=== PATIENT | male | born 1990 | race African-American/Black ===

== ENCOUNTER 2024-03-28 20:35 | Emergency (ER) | payer MEDICAID, OTHER ==
[~2024-03-28] VITALS: Ht 177.8 cm; Wt 74.6 kg
--- NOTE | 2024-03-28 21:45 | DVH ---
CLINICAL INDICATION: third digit swelling TECHNIQUE: 3 radiographic views of the right 3rd digit were obtained. Comparison: None FINDINGS/IMPRESSION: There is lucency through the base of the 4th toe distal phalanx consistent with acute fracture. There is significant soft tissue edema of the 3rd finger with no obvious fractures or dislocation.
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
[2024-03-29 02:24] LABS: Basophils # (auto) 0.1 10 ^3/uL (0-0.2); Basophils % (auto) 0.8 % (0.0-2.0); Eosinophils # (auto) 0.2 10 ^3/uL (0-0.8); Eosinophils % (auto) 3.1 % (0.0-7.0); Hematocrit 38.4 % (41.0-53.0); Hemoglobin 12.8 g/dL (13.5-17.5); Lymphocytes % (auto) 14.9 % (10.0-50.0); Mean Corpuscular Hgb Conc. 33.4 g/dL (32.0-36.0); Monocytes # (auto) 0.6 10 ^3/uL (0-1.3); Monocytes % (auto) 9.4 % (0.0-12.0); Neutrophils # (auto) 4.8 10 ^3/uL (1.6-8.6); Neutrophils % (auto) 71.8 % (37.0-80.0); Nucleated Red Blood Cells % 0.2 %; Platelet Count (auto) 266 10^3/uL (140-450); Red Blood Cells 4.57 10^6/uL (4.5-5.90); Red Cell Distribution Width 13.9 % (11.8-14.3); White Blood Cell 6.7 10^3/uL (4.4-10.8)
[2024-03-29 02:43] LABS: Albumin 4.4 g/dL (3.2-4.8); Anion Gap 9 (5-15); Aspartate Aminotransferase 27 U/L (13-40); BUN/Creatinine Ratio 15.6 (10.0-20.0); Blood Urea Nitrogen 12 mg/dL (9-23); Calcium 10.1 mg/dL (8.7-10.4); Carbon Dioxide 27 mmol/L (20-31); Chloride 99 mmol/L (98-107); Glucose 95 mg/dL (74-106); Potassium 3.7 mmol/L (3.5-5.1)
[2024-03-29 02:44] LABS: Total Protein 7.9 g/dL (5.7-8.2)
[2024-03-29] MEDS: VANCOMYCIN 1GM/250ML KIT 250 ML IV ONE (03:00)
[2024-03-29 03:15] LABS: Alanine Aminotransferase 46 U/L (7-40); Alkaline Phosphatase 144 U/L (46-116); Bilirubin, Total 0.2 mg/dL (0.2-1.0); Sodium 135 mmol/L (136-145)
[2024-03-29 15:46] VITALS: BP 139/87; PULSE 98; RESP 17; TEMP 98.8; O2SAT 97
== END 2024-03-29 14:12 | disposition left against medical advice (07) ==
LOC: ER 20:35
DX: S62.632A Displaced fracture of distal phalanx of right middle finger, initial encounter for closed fracture (principal); S60.422A Blister (nonthermal) of right middle finger, initial encounter; F17.210 Nicotine dependence, cigarettes, uncomplicated; W26.8XXA Contact with other sharp object(s), not elsewhere classified, initial encounter; Y93.89 Activity, other specified; Y92.89 Other specified places as the place of occurrence of the external cause; Y99.8 Other external cause status
CPT/HCPCS: 36415; 73130; 80053; 85025

== ENCOUNTER 2024-12-10 17:31 | Inpatient (IN) | payer MEDICAID ==
[~2024-12-10] VITALS: Ht 177.8 cm; Wt 72.9 kg
--- NOTE | 2024-12-10 18:46 | ED.PDOC ---
History of Present Illness HPI Comments This patient is a homeless 33 y/o M, with a history of right-sided kidney stones who presents to the ED with c/c of right flank pain and bloody urine production for the past several days. Denial of any nausea, vomiting, or further acute symptoms. Patient states he has had these symptoms for quite some time, but has not been able to follow up with the primary care provider for management of his kidney stone concerns. Patient was febrile and tachycardic at arrival. Chief Complaint: Back Pain Time Seen by MD: 18:10 Reviewed Notes: Nurses Notes, Medications, Allergies Allergies: Coded Allergies: NO KNOWN ALLERGIES (Unverified , 03/28/24) Information Source: Patient Mode of Arrival: Ambulatory Severity: Mild Timing: Hours Duration: Since onset Prehospital treatment: None Past Medical History PAST MEDICAL HISTORY: HIV, Kidney Stones, Denies Surgical History: Denies all surgeries Family History Family History: Reviewed,noncontributory to illness Social History Smoker: Less Than 1 Pack/Day Alcohol: Denies ETOH Use Drugs: Methamphetamine Lives In: Homeless Constitutional: denies: chills, diaphoresis, fatigue, fever, malaise, sweats, weakness, others EENTM: denies: blurred vision, double vision, ear bleeding, ear discharge, ear drainage, ear pain, ear ringing, eye pain, eye redness, hearing loss, mouth pain, mouth swelling, nasal discharge, nose bleeding, nose congestion, nose pain, photophobia, tearing, throat pain, throat swelling, voice changes, others Respiratory: denies: cough, hemoptysis, orthopnea, SOB at rest, shortness of breath, SOB with excertion, stridor, wheezing, others Cardiovascular: denies: chest pain, dizzy spells, diaphoresis, Dyspnea on exertion, edema, irregular heart beat, left arm pain, lightheadedness, palpitations, PND, syncope, others Gastrointestinal: reports: abdominal pain; denies: abdomen distended, blood streaked bowels, constipated, diarrhea, dysphagia, difficulty swallowing, delores temesis, melena, nausea, poor appetite, poor fluid intake, rectal bleeding, rectal pain, vomiting, others Genitourinary: reports: flank pain, hematuria; denies: burning, dysuria, frequency, incontinence, penile discharge, penile sore, pain, testicle pain, testicle swelling, urgency, others Neurological: denies: dizziness, fainting, headache, left sided numbness, left sided weakness, numbness, paresthesia, pre-existing deficit, right sided numbness, right sided weakness, seizure, speech problems, tingling, tremors, weakness, others Musculoskeletal: denies: back pain, gout, joint pain, joint swelling, muscle pain, muscle stiffness, neck pain, others Integumetry: denies: bruises, change in color, change in hair/nails, dryness, laceration, lesions, lumps, rash, wounds, others Allergic/Immunocompromised: denies: Difficulty Healing, Frequent Infections, Hives, Itching, others Hematologic/Lymphatic: denies: anemia, blood clots, easy bleeding, easy bruising, swollen glands, others Endocrine: denies: excessive hunger, excessive sweating, excessive thirst, excessive urination, flushing, intolerance to cold, intolerance to heat, unexplained weight gain, unexplained weight loss, others Psychiatric: denies: anxiety, bipolar disorder, depression, hopeless, panic disorder, schizophrenia, sleepless, suicidal, others All Other Systems: Reviewed and Negative (Comprehensive systems review obtained and negative except for what is stated in the HPI.) Physical Exam General Appearance: Moderate Distress (Moderate distress due to right flank pain concerns. Patient is not well kempt and dirty.), Normal HEENT: Normal ENT Inspection, Pharynx Normal, TMs Normal Neck: Full Range of Motion, Non-Tender, Normal, Normal Inspection Respiratory: Chest Non-Tender, Lungs Clear, No Accessory Muscle Use, No Respiratory Distress, Normal Breath Sounds Cardiovascular: No Edema, No JVD, No Murmur, No Gallop, Normal Peripheral Pulses, Regular Rate/Rhythm Breast Exam: Deferred Gastrointestinal: Other (Diffuse right-sided tenderness to palpation with definitive CVA tenderness noted. Pain radiates towards the abdomen. No signs of trauma.) Genitalia: Deferred Pelvic: Deferred Rectal: Deferred Extremities: No calf tenderness, Normal inspection Neurologic: Alert Cerebellar Function: NOT DONE Reflexes: NOT DONE Skin: Dry, Normal Color, Warm Lymphatic: No Adenopathy Was a procedure done? Was a procedure done?: No Differential Dx Considerations may include: nephrolithiasis, pyelonephritis, cystitis, sepsis, musculoskeletal pain, kidney stone, hydronephrosis among others X-Ray, Labs, Meds, VS Vital Signs Date Time Temp Pulse Resp B/P (MAP) Pulse Ox O2 Delivery O2 Flow Rate FiO2 12/10/24 19:22 128 18 100 Room Air 0 12/10/24 19:20 98.2 128 18 128/67 (87) 100 98.2 12/10/24 17:38 101.3 119 18 130/84 97 101.3 Lab Test 12/10/24 18:54 12/10/24 18:37 Range/Units White Blood Count 8.0 4.4-10.8 10^3/uL Red Blood Count 3.15 L 4.5-5.90 10^6/uL Hemoglobin 8.3 L 13.5-17.5 g/dL Hematocrit 25.1 L 41.0-53.0 % Mean Corpuscular Volume 79.5 L 80.0-100.0 fL Mean Corpuscular Hemoglobin 26.3 L 28.0-32.0 pg Mean Corpuscular Hemoglobin Concent 33.1 32.0-36.0 g/dL Red Cell Distribution Width 16.5 H 11.8-14.3 % Platelet Count 254 140-450 10^3/uL Mean Platelet Volume 7.6 6.9-10.8 fL Neutrophils (%) (Auto) 78.5 37.0-80.0 % Lymphocytes (%) (Auto) 7.5 L 10.0-50.0 % Monocytes (%) (Auto) 12.6 H 0.0-12.0 % Eosinophils (%) (Auto) 0.4 0.0-7.0 % Basophils (%) (Auto) 1.0 0.0-2.0 % Neutrophils # (Auto) 6.3 1.6-8.6 10 ^3/uL Lymphocytes # (Auto) 0.6 0.4-5.4 10 ^3/uL Monocytes # (Auto) 1.0 0-1.3 10 ^3/uL Eosinophils # (Auto) 0 0-0.8 10 ^3/uL Basophils # (Auto) 0.1 0-0.2 10 ^3/uL Nucleated Red Blood Cells 0.1 % Sodium Level 140 136-145 mmol/L Potassium Level 3.5 3.5-5.1 mmol/L Chloride Level 103 98-107 mmol/L Carbon Dioxide Level 29 20-31 mmol/L Anion Gap 8 5-15 Blood Urea Nitrogen 12 9-23 mg/dL Creatinine 1.00 0.700-1.30 mg/dL Glomerular Filtration Rate Calc 101 >90 mL/min BUN/Creatinine Ratio 12.0 10.0-20.0 Serum Glucose 79 74-106 mg/dL Calcium Level 8.1 L 8.7-10.4 mg/dL Urine Color Light-brown Yellow Urine Clarity Turbid H Clear Urine pH 6.0 5.0-9.0 Urine Specific Trevor 1.013 1.001-1.035 Urine Protein 1+ H Negative Urine Ketones Negative Negative Urine Blood 3+ H Negative /uL Urine Nitrite Negative Negative Urine Bilirubin Negative Negative Urine Urobilinogen Normal Negative mg/dL Urine Leukocyte Esterase 3+ Negative /uL Urine RBC 197 0 - 3 /hpf Urine WBC Clumps Present None Seen /hpf Urine Microscopic WBC 297 H 0-3 /HPF Urine Squamous Epithelial Cells Few <5 /hpf Urine Bacteria Few H None Seen /hpf Urine Mucus Few None Seen Urine Glucose Normal Normal mg/dL Current Medications Medications (Trade) Dose Ordered Sig/Eva Route Start Time Stop Time Status Last Admin Ketorolac Tromethamine (Toradol Injection) 30 mg ONCE ONCE IM 12/10/24 18:15 12/10/24 18:16 DC 12/10/24 19:13 Acetaminophen/ Hydrocodone Bitart ([place] 5/325MG Tab) 1 tab ONCE ONCE PO 12/10/24 18:15 12/10/24 18:16 DC 12/10/24 19:13 X-Ray, Labs, Meds, VS Comment All studies performed the ED were evaluated by me personally. Serum studies revealed a mild anemic state as well as a significant urinary tract infection with red blood cell deposition. CT of the abdomen and pelvis confirmed a right- sided 13 mm kidney stone with the accompanying hydronephrosis. Possible mesenteric adenitis noted as well. Patient will be admitted for pain management as well as nephrology consult to assess his occlusive stone concerns as well as antibiotic therapy for a significant pyelonephritis. Time of 1ST Reevaluation: 21:48 Reevaluation 1ST: Improved Consultation: PCP Patient Education/Counseling: Diagnosis, Treatment, Need For Follow Up Family Education/Counseling: Diagnosis, Treatment, No Family Present SEPSIS Sepsis Screen Date sepsis recognized/suspect: Dec 10, 2024 Time Sepsis recognized/suspect: 1740 Recent Procedure: No On Antibiotic Therapy: No Respiratory Rate >20: No Heart Rate >90: Yes Temp<36 C (96.8 F) or >38.3 C: No SBP <90 or MAP <65 mmHG: No New Acute Mental Status Change: No Is the patient on CPAP, BIPAP,: No Physician Orders Ct Ab Pel Wo Con-No Oral Or Iv (12/10/24 18:10) Sodium Chloride 0.9% (12/10/24 21:45) Hydromorphone Injection (Dilaudid Inject (12/10/24 21:45) Heplock Iv (12/10/24 ) Ciprofloxacin 400mg/200ml (Cipro Iv) (12/10/24 21:45) Vital Signs Date Time Temp Pulse Resp B/P (MAP) Pulse Ox O2 Delivery O2 Flow Rate FiO2 12/10/24 19:22 128 18 100 Room Air 0 12/10/24 19:20 98.2 128 18 128/67 (87) 100 98.2 12/10/24 17:38 101.3 119 18 130/84 97 101.3 Laboratory Tests Test 12/10/24 18:54 White Blood Count 8.0 10^3/uL (4.4-10.8) Medications Medications Dose Ordered Sig/Eva Route Start Time Stop Time Status Last Admin Dose Admin Acetaminophen/ Hydrocodone Bitart 1 tab ONCE ONCE PO 12/10/24 18:15 12/10/24 18:16 DC 12/10/24 19:13 Ketorolac Tromethamine 30 mg ONCE ONCE IM 12/10/24 18:15 12/10/24 18:16 DC 12/10/24 19:13 Departure 1 Departure Time of Disposition: 21:48 Impression: Primary Impression: Kidney stone Additional Impressions: Hydronephrosis concurrent with and due to calculi of kidney and ureter Pyelonephritis Anemia Disposition: ADMITTED INPATIENT Condition: Fair Discharged With: Self Critical Care Note Critical Care Time?: No Stability Stability form required: No Heart Score Heart Score: Heart Score Response (Comments) Value History N/A 0 EKG N/A 0 Age N/A 0 Risk Factors N/A 0 Troponin N/A 0 Total 0 I personally scribed for TONJA CHRISTINA PAC ([email or web address]) on 12/10/24 at 18:46. Electronically submitted by Otto Benítez ([email or web address]). TONJA CHRISTINA PAC Dec 10, 2024 18:46
[2024-12-10 18:47] LABS: Hemoglobin 8.3 g/dL (13.5-17.5); Nucleated Red Blood Cells % 0.1 %
[2024-12-10 18:48] LABS: Chloride 103 mmol/L (98-107); Potassium 3.5 mmol/L (3.5-5.1); Sodium 140 mmol/L (136-145)
[2024-12-10 18:49] LABS: Anion Gap 8 (5-15); Carbon Dioxide 29 mmol/L (20-31); Hematocrit 25.1 % (41.0-53.0); Mean Corpuscular Hemoglobin 26.3 pg (28.0-32.0); Mean Corpuscular Volume 79.5 fL (80.0-100.0)
[2024-12-10 18:54] LABS: BUN/Creatinine Ratio 12.0 (10.0-20.0); Blood Urea Nitrogen 12 mg/dL (9-23); Calcium 8.1 mg/dL (8.7-10.4); Glucose 79 mg/dL (74-106)
--- NOTE | 2024-12-10 19:08 | DVH ---
Exam: CT CT AB PEL WO CON-NO ORAL OR IV History: Right-sided flank pain Comparison Study: CT CHEST on DOS: 11/21/23, CT ABD/PEL on DOS: 11/15/23, CT ABD/PEL on DOS: 08/03/23, C T ABD/PEL on DOS: 07/12/23, CT ABD/PEL W - IV on DOS: 06/13/23 TECHNIQUE: Multidetector CT of the abdomen and pelvis was performed from lung bases to pubic symphysi s. Imaging was performed without IV contrast. Axial, coronal, and sagittal multiplanar reformats were obtained from the axial data set by the technologist. RADIATION DOSE: CTDI vol 5.16 mGy. DLP 291.67 mGy.cm Findings: Limited evaluation of the solid organs in the absence of IV contrast. Lungs: Atelectasis/scarring most pronounced within the right middle lobe. Liver: Unremarkable. Spleen: Unremarkable. Pancreas: Unremarkable. Gallbladder: Unremarkable. Adrenals: Unremarkable Kidneys: 13 mm calculus in the region of the right renal pelvis. Mild right hydronephrosis. Pelvic Viscera: Unremarkable. Vasculature: Unremarkable. Retroperitoneum: Nonspecific mild retroperitoneal adenopathy. Mild hazy appearance of the mesentery. Bowel: No bowel obstruction. Musculoskeletal: Unremarkable. Soft tissues: Diffuse subcutaneous edema. Impression: 1. Limited evaluation as above. 13 mm calculus in the region of the right renal pelvis, comparison wi th prior imaging is suggested. Mild right hydronephrosis. 2. Mild hazy appearance of the mesentery and diffuse subcutaneous edema. 3. Additional findings as detailed.
[2024-12-10] MEDS: HYDROcodone-ACET 5/325MG TAB PO ONE (19:13)
[2024-12-10] MEDS: KETOROLAC TROMETH 60MG/2ML VIAL IM ONE (19:13)
[2024-12-10 19:30] LABS: Urine Protein, UAD 1+ (Negative); Urine WBC Clumps PRESENT /hpf (None Seen)
[2024-12-10] MEDS: SODIUM CHLORIDE 0.9% 1,000 ML IV ONE (21:45)
[2024-12-10] MEDS: CIPROFLOXACIN 400MG/200ML 200 ML IV ONE (23:17)
[2024-12-10] MEDS: HYDROmorphone HCL 2 MG/ML VL/or syr IV ONE (23:17)
[2024-12-10] MEDS ORDERED: ONDANSETRON HCL 4 MG/2 ML VIAL IV PRN (23:30)
--- NOTE | 2024-12-11 00:01 | DVHHPRES ---
History of Present Illness Resident Creating Document: LYN MARRERO RESIDENT History of Present Illness This is a 33-year-old male with past medical history of HIV for 3 years(taking BIKTARVY) who has come to the emergency with chief complaints of abdominal pain in the right lower quadrant for the past 1 week as well as blood in his urine since yesterday. Patient states that last Friday he started to have abdominal pain which was gradual in onset, increasing in intensity, localized to the right lower quadrant, constant and stabbing, 7/10 in intensity for which he visited [facility] where he was told that he had a kidney infection and stone and was treated for it but left AMA after 3 days of hospitalization as he was not given any food there. Patient reports that since yesterday he saw bright red blood in his urine and the abdominal pain has been increasing in intensity for which he decided to come to the ER. He states that he has increased Nausea, urinary frequency, presence of dysuria, but denies burning micturition, fever, chills, vomiting. On admission he was septic with tachycardia- pulse 119, temperature 101.3 and urine analysis showed Urine turbid, protein 1+, blood 3+, leukocyte esterase 3+, WBC clumps present, WBC 297, bacteria few. CT abdomen and pelvis shows 13 mm calculi in the right renal pelvis and mild hydronephrosis. We are admitting the patient for further workup and management. Past medical history: HIV Past Surgical history: Denies Family history: Reviewed and noncontributory to the management of this case Social history: Patient smokes 8 cigarettes/day for 18 years, smokes meth- has been doing so for 20 years, denies any alcohol use Medication: Biktarvy for HIV PCP: Does not have one Code status: Full code Review of Systems Constitutional: No: Fever, Chills, Sweats, Weakness, Malaise, Other Eyes: No: Pain, Vision change, Conjunctivae inflammation, Eyelid inflammation, Other, Redness ENT: No: Ear pain, Ear discharge, Nose pain, Nose discharge, Nose congestion, Mouth pain, Mouth swelling, Throat pain, Throat swelling, Other Respiratory: No: Cough, Dry, Shortness of breath, SOB with excertion, Wheezing, Hemoptysis, Pleuritic Pain, Sputum, Wheezing, Other Gastrointestinal: Nausea; No: Vomiting, Abdominal Pain, Diarrhea, Constipation, Melena, Hematochezia, Other Genitourinary: Dysuria, Frequency; No Incontinence; Hematuria; No Retention, No Other Musculoskeletal: No: other, neck pain, shoulder pain, arm pain, back pain, hand pain, leg pain, foot pain Skin: No: Rash, Lesions, Jaundice, Bruising, Other Allergies: Coded Allergies: NO KNOWN ALLERGIES (Unverified , 03/28/24) Medications Current Medications Medications Dose Ordered Sig/Eva Route Start Time Stop Time Status Last Admin Dose Admin Acetaminophen/ Hydrocodone Bitart 1 tab Q4HP PRN PO 12/10/24 23:30 Ondansetron HCl 4 mg Q4HP PRN IV 12/10/24 23:30 Acetaminophen 650 mg Q6HP PRN PO 12/10/24 23:30 Ceftriaxone Sodium 50 ml @ 100 mls/hr DAILY@2100 IV 12/11/24 21:00 Hydromorphone HCl 0.25 mg Q4HPRN PRN IV 12/10/24 23:30 Tamsulosin HCl 0.4 mg QPM PO 12/11/24 18:00 Pantoprazole Sodium 40 mg DAILY IV 12/11/24 10:00 Exam Vital Signs Vital Signs Date Time Temp Pulse Resp B/P (MAP) Pulse Ox O2 Delivery O2 Flow Rate FiO2 12/10/24 23:17 101 19 114/70 12/10/24 22:48 98.4 95 98.4 12/10/24 19:22 Room Air 0 Exam General Appearance: Alert, Oriented X3, Cooperative, in mild acute distress, patient looks ill HEENT: Atraumatic, Mucous membranes moist/pink, presence of oral thrush Respiratory: Clear to auscultation, Normal air movement, No added sounds Cardiovascular: Regular rate, Normal S1, Normal S2, No murmurs Abdominal: Active bowel sounds, Soft, no distention, tenderness in the right lower quadrant on palpation Extremities: No edema, Normal pulses, No tenderness/swelling Skin: No Significant rash, except past surgical scars Neuro: Normal speech, sensorimotor deficits none Psych/Mental Status: Mental status NL, Mood NL Labs/Xrays Labs Test 12/10/24 18:54 12/10/24 18:37 Range/Units White Blood Count 8.0 4.4-10.8 10^3/uL Red Blood Count 3.15 L 4.5-5.90 10^6/uL Hemoglobin 8.3 L 13.5-17.5 g/dL Hematocrit 25.1 L 41.0-53.0 % Mean Corpuscular Volume 79.5 L 80.0-100.0 fL Mean Corpuscular Hemoglobin 26.3 L 28.0-32.0 pg Mean Corpuscular Hemoglobin Concent 33.1 32.0-36.0 g/dL Red Cell Distribution Width 16.5 H 11.8-14.3 % Platelet Count 254 140-450 10^3/uL Mean Platelet Volume 7.6 6.9-10.8 fL Neutrophils (%) (Auto) 78.5 37.0-80.0 % Lymphocytes (%) (Auto) 7.5 L 10.0-50.0 % Monocytes (%) (Auto) 12.6 H 0.0-12.0 % Eosinophils (%) (Auto) 0.4 0.0-7.0 % Basophils (%) (Auto) 1.0 0.0-2.0 % Neutrophils # (Auto) 6.3 1.6-8.6 10 ^3/uL Lymphocytes # (Auto) 0.6 0.4-5.4 10 ^3/uL Monocytes # (Auto) 1.0 0-1.3 10 ^3/uL Eosinophils # (Auto) 0 0-0.8 10 ^3/uL Basophils # (Auto) 0.1 0-0.2 10 ^3/uL Nucleated Red Blood Cells 0.1 % Sodium Level 140 136-145 mmol/L Potassium Level 3.5 3.5-5.1 mmol/L Chloride Level 103 98-107 mmol/L Carbon Dioxide Level 29 20-31 mmol/L Anion Gap 8 5-15 Blood Urea Nitrogen 12 9-23 mg/dL Creatinine 1.00 0.700-1.30 mg/dL Glomerular Filtration Rate Calc 101 >90 mL/min BUN/Creatinine Ratio 12.0 10.0-20.0 Serum Glucose 79 74-106 mg/dL Calcium Level 8.1 L 8.7-10.4 mg/dL Urine Color Light-brown Yellow Urine Clarity Turbid H Clear Urine pH 6.0 5.0-9.0 Urine Specific [place] 1.013 1.001-1.035 Urine Protein 1+ H Negative Urine Ketones Negative Negative Urine Blood 3+ H Negative /uL Urine Nitrite Negative Negative Urine Bilirubin Negative Negative Urine Urobilinogen Normal Negative mg/dL Urine Leukocyte Esterase 3+ Negative /uL Urine RBC 197 0 - 3 /hpf Urine WBC Clumps Present None Seen /hpf Urine Microscopic WBC 297 H 0-3 /HPF Urine Squamous Epithelial Cells Few <5 /hpf Urine Bacteria Few H None Seen /hpf Urine Mucus Few None Seen Urine Glucose Normal Normal mg/dL SEPSIS Sepsis Screen Date sepsis recognized/suspect: Dec 10, 2024 Time Sepsis recognized/suspect: 1739 Recent Procedure: No On Antibiotic Therapy: No Respiratory Rate >20: No Heart Rate >90: Yes Temp<36 C (96.8 F) or >38.3 C: No SBP <90 or MAP <65 mmHG: No New Acute Mental Status Change: No Is the patient on CPAP, BIPAP,: No Physician Orders Ct Ab Pel Wo Con-No Oral Or Iv (12/10/24 18:10) Sodium Chloride 0.9% (12/10/24 21:45) Heplock Iv (12/10/24 ) Admit (12/10/24 23:16) Code Status (12/10/24 23:16) Hydrocodone-Acet 5/325mg Tab (Harvest 5/32 (12/10/24 23:30) Ondansetron Hcl (Zofran) (12/10/24 23:30) Complete Blood Count (12/11/24 04:00) Comprehensive Metabolic Panel (12/11/24 04:00) Acetaminophen Tablet (Tylenol Tablet) (12/10/24 23:30) Stat Ekg For Chest Pain (12/10/24 23:16) Notify Md Of Changes From Base (12/10/24 23:16) Ceftriaxone 1gm/50ml (Rocephin) (12/11/24 21:00) Hydromorphone Injection (Dilaudid Inject (12/10/24 23:30) Urine Bacterial Culture (12/10/24 23:16) Stool Occult Blood (12/10/24 23:16) * Urology Consult (12/10/24 23:16) Drug Screen (12/10/24 23:16) Hepatic Panel (12/10/24 23:16) Blood Culture (12/10/24 23:16) Hemoglobin & Hematocrit (12/10/24 23:16) Abdomen Limited (12/10/24 23:16) Magnesium (12/10/24 23:16) Mrsa Screen (12/10/24 23:16) Sodium Chloride 0.9% (12/10/24 23:30) Tamsulosin Hydrochloride (Flomax) (12/11/24 18:00) Pantoprazole (Protonix) (12/11/24 10:00) Vital Signs Date Time Temp Pulse Resp B/P (MAP) Pulse Ox O2 Delivery O2 Flow Rate FiO2 12/10/24 23:17 101 19 114/70 12/10/24 22:48 98.4 106 18 115/70 (85) 95 98.4 12/10/24 19:22 128 18 100 Room Air 0 12/10/24 19:20 98.2 128 18 128/67 (87) 100 98.2 12/10/24 17:38 101.3 119 18 130/84 97 101.3 Laboratory Tests Test 12/10/24 18:54 White Blood Count 8.0 10^3/uL (4.4-10.8) Medications Medications Dose Ordered Sig/Eva Route Start Time Stop Time Status Last Admin Dose Admin Acetaminophen/ Hydrocodone Bitart 1 tab ONCE ONCE PO 12/10/24 18:15 12/10/24 18:16 DC 12/10/24 19:13 1 TAB Ciprofloxacin 200 ml @ 200 mls/hr ONCE ONCE IV 12/10/24 21:45 12/10/24 22:44 DC 12/10/24 23:17 200 MLS/HR Ketorolac Tromethamine 30 mg ONCE ONCE IM 12/10/24 18:15 12/10/24 18:16 DC 12/10/24 19:13 30 MG Assessment/Plan Assessment/Plan #Sepsis due to acute complicated UTI #Right sided nephrolithiasis #Right sided mild hydronephrosis -urine analysis shows- Urine turbid, protein 1+, blood 3+, leukocyte esterase 3+, WBC clumps present, WBC 297, bacteria few -CT AB PEL WO CON-NO ORAL OR IV:Limited evaluation as above. 13 mm calculus in the region of the right renal pelvis, comparison with prior imaging is suggested. Mild right hydronephrosis; Mild hazy appearance of the mesentery and diffuse subcutaneous edema - blood culture - urine culture - normal saline IV bolus - ceftriaxone 1 g IV daily scheduled - pain management with: acetaminophen 650 mg q.6 p.o. prn, Harvest 5/325 mg q.4 PRN, Dilaudid 0.5 mg IV q.4 PRN - abdominal ultrasound limited - urology consult placed #Microcytic, hypochromic anemia- iron deficiency -Iron profile, ferritin - iron 12, TIBC 186, ferritin 590.3 -Stool occult blood -PT/PTT -ferrous sulphate 325mg po daily #Methamphetamine abuse -UDS -patient has been counseled regarding side effects and dangers of methamphetamine and the need for cessation over 8 minutes #HIV #oral thrush -chest x-ray ordered shows no acute disease -Fluconazole 100 mg p.o. daily scheduled GI prophylaxis: Protonix 40 mg IV daily DVT prophylaxis: held due to microcytic hypochromic anemia Diet: regular diet Goals of care discussed with the patient for more than 27 minutes: Full code status Case discussed with Dr. Turner, patient and nurse. Plan discussed with: Patient My Orders Orders - LYN MARRERO RESIDENT Procedure Category Date Status Time Admit ADMIT 12/10/24 Transmitted 23:16 Code Status CODE 12/10/24 Transmitted 23:16 Hydrocodone-Acet PHA 12/10/24 In Process 5/325mg Tab (Harvest 23:30 Ondansetron Hcl PHA 12/10/24 In Process (Zofran) 23:30 Complete Blood Count LAB 12/11/24 Verified 04:00 Comprehensive LAB 12/11/24 Verified Metabolic Panel 04:00 Acetaminophen Tablet PHA 12/10/24 In Process (Tylenol Tablet) 23:30 Stat Ekg For Chest VASQUEZ 12/10/24 In Process Pain 23:16 Notify Md Of Changes VASQUEZ 12/10/24 In Process From Base 23:16 Ceftriaxone 1gm/50ml PHA 12/11/24 In Process (Rocephin) 21:00 Hydromorphone PHA 12/10/24 In Process Injection (Dilaudid 23:30 Urine Bacterial MAIRA 12/10/24 Logged Culture 23:16 Stool Occult Blood LAB 12/10/24 Logged 23:16 * Urology Consult CONS 12/10/24 Transmitted 23:16 Drug Screen LAB 12/10/24 Logged 23:16 Hepatic Panel LAB 12/10/24 Logged 23:16 Blood Culture MAIRA 12/10/24 Logged 23:16 Hemoglobin & LAB 12/10/24 Logged Hematocrit 23:16 Abdomen Limited US 12/10/24 Logged 23:16 Magnesium LAB 12/10/24 Logged 23:16 Mrsa Screen MAIRA 12/10/24 Logged 23:16 Sodium Chloride 0.9% PHA 12/10/24 In Process 23:30 Tamsulosin PHA 12/11/24 In Process Hydrochloride (Flomax) 18:00 Pantoprazole PHA 12/11/24 In Process (Protonix) 10:00 Date of Service: Dec 11, 2024 Billing Provider: TADEO TURNER MD Common Visit Codes: [id number] INP/OBS CARE (HIGH) LYN MARRERO RESIDENT Dec 11, 2024 00:01 TADEO TURNER MD Dec 15, 2024 12:01
[2024-12-11 00:08] LABS: Hematocrit 23.7 % (41.0-53.0); Hemoglobin 7.7 g/dL (13.5-17.5)
[2024-12-11] MEDS: FLUCONAZOLE 100 MG TAB PO ONE (00:15)
[2024-12-11 00:21] LABS: Alanine Aminotransferase 22.0 U/L (7-40); Albumin 3.3 g/dL (3.2-4.8); Bilirubin, Direct 0.2 mg/dL (<0.3); Bilirubin, Total 0.4 mg/dL (0.2-1.0); Magnesium 1.6 mg/dL (1.6-2.6); Total Protein 7.0 g/dL (5.7-8.2)
[2024-12-11] MEDS: PANTOPRAZOLE 40 MG/10 ML VIAL INJ IV ONE (00:32)
[2024-12-11 00:35] LABS: Alkaline Phosphatase 121.0 U/L (46-116)
--- NOTE | 2024-12-11 00:38 | DVH ---
STUDY: US RIGHT LOWER QUAD History: rlq pain rule out appendicitis Technique: Multiplanar grayscale, and color ultrasound images, of the abdomen were obtained. Color D oppler interrogation was performed. FINDINGS/IMPRESSION: Limited sonographic evaluation of the abdomen for the assessment of possible april endicitis. The appendix was not visualized.
--- NOTE | 2024-12-11 00:59 | DVH ---
CHEST RADIOGRAPH Indication: sob Technique: Single frontal view of the chest was obtained COMPARISON: XR CHEST 1 VIEW on DOS: 10/19/24, XR CHEST 1 VIEW on DOS: 11/27/23, CT CHEST on DOS: 4, US GUIDED THORACENTESIS on DOS: 11/21/23, XR CHEST 1 VIEW on DOS: 11/20/23 FINDINGS: Lines and Tubes: None Lungs: Clear Pleura: No effusion. No pneumothorax. Cardiomediastinal contours: Unremarkable Bones: Unremarkable IMPRESSION: 1. No acute disease.
[2024-12-11 01:37] LABS: INR 1.14 (0.9-1.15); Partial Thromboplastin Time 29.9 SEC (24.5-34.5); Prothrombin Time 11.9 sec (9.3-11.8)
[2024-12-11] MEDS: SODIUM CHLORIDE 0.9% 2,200 ML IV ONE (02:11)
[2024-12-11 02:28] LABS: Iron 14.0 ug/dL (65-175); Total Iron Binding Capacity 186.0 ug/dL (250-425)
[2024-12-11 02:35] VITALS: BP 114/69; PULSE 94; RESP 20; TEMP 97.9; O2SAT 99
[2024-12-11 04:59] LABS: Alanine Aminotransferase 21 U/L (7-40); Anion Gap 9 (5-15); BUN/Creatinine Ratio 11.5 (10.0-20.0); Bilirubin, Total 0.4 mg/dL (0.2-1.0); Blood Urea Nitrogen 11 mg/dL (9-23); Carbon Dioxide 25 mmol/L (20-31); Chloride 106 mmol/L (98-107); Glucose 86 mg/dL (74-106); Potassium 3.5 mmol/L (3.5-5.1); Sodium 140 mmol/L (136-145); Total Protein 6.3 g/dL (5.7-8.2)
[2024-12-11 05:02] LABS: Hematocrit 23.4 % (41.0-53.0); Hemoglobin 7.6 g/dL (13.5-17.5); Mean Corpuscular Hemoglobin 26.5 pg (28.0-32.0); Mean Corpuscular Volume 81.7 fL (80.0-100.0); Nucleated Red Blood Cells % 0.1 %
[2024-12-11 05:05] LABS: Albumin 2.9 g/dL (3.2-4.8); Alkaline Phosphatase 154 U/L (46-116); Calcium 7.5 mg/dL (8.7-10.4)
[2024-12-11 05:30] LABS: Opiate Scree,Urine Neg (NEGATIVE)
[2024-12-11 05:31] LABS: Amphetamine Screen, Urine Pos (NEGATIVE); Barbiturate Scree,Urine Neg (NEGATIVE); Benzodiazephine Screen, Urine Neg (NEGATIVE); Cannabinoid Screen, Urine Neg (NEGATIVE); Cocaine Screen, Urine Neg (NEGATIVE); Phencyclidine Screen, Urine Neg (NEGATIVE)
[2024-12-11 09:00] VITALS: BP 129/75; PULSE 98; RESP 16; TEMP 98.6; O2SAT 94
[2024-12-11] MEDS: PANTOPRAZOLE 40 MG/10 ML VIAL INJ IV SCH (11:41)
[2024-12-11] MEDS: FERROUS SULFATE 325mg EC TAB PO SCH (11:42)
[2024-12-11] MEDS: IRON SUCROSE COMPLEX 110 ML IV SCH (11:42)
[2024-12-11] MEDS: SODIUM CHLORIDE 0.9% 1,000 ML IV SCH (12:30)
[2024-12-11 12:39] VITALS: BP 114/75; PULSE 82; RESP 16; TEMP 99.7; O2SAT 100
[2024-12-11 17:00] VITALS: BP 138/94; PULSE 84; RESP 16; TEMP 98.7; O2SAT 92
[2024-12-11] MEDS: NYSTATIN (MOUTH-THROAT) 500,000 UNITS/5 ML SUSP MT ONE (17:24)
[2024-12-11] MEDS: NYSTATIN (MOUTH-THROAT) 500,000 UNITS/5 ML SUSP MT SCH (18:28)
[2024-12-11] MEDS: TAMSULOSIN HYDROCHLORIDE 0.4 MG CAP PO SCH (18:29)
[2024-12-11 20:00] VITALS: PULSE 100; RESP 18; O2SAT 95
[2024-12-11 21:00] VITALS: BP 144/97; PULSE 108; RESP 18; TEMP 100.9; O2SAT 94
[2024-12-11] MEDS ORDERED: VANCOMYCIN PER PHARMACY 0 MG IV SCH (21:00)
[2024-12-11] MEDS: VANCOMYCIN 1GM/250ML KIT 250 ML IV ONE (21:34)
[2024-12-12] VITALS (9 sets, daily range): BP systolic 101–138; BP diastolic 74–90; PULSE 97–123; RESP 16–20; TEMP 99–102.3; O2SAT 94–99
[2024-12-12] MEDS ORDERED: VANCOMYCIN 1GM/200ML PM 200 ML IV ONE (05:00)
[2024-12-12] MEDS: VANCOMYCIN 1GM/250ML KIT 250 ML IV ONE (05:20)
[2024-12-12 07:00] LABS: Alanine Aminotransferase 15 U/L (7-40); Alkaline Phosphatase 112 U/L (46-116); Anion Gap 9 (5-15); BUN/Creatinine Ratio 11.4 (10.0-20.0); Blood Urea Nitrogen 9 mg/dL (9-23); Carbon Dioxide 27 mmol/L (20-31); Chloride 100 mmol/L (98-107); Glucose 88 mg/dL (74-106); Potassium 3.7 mmol/L (3.5-5.1); Total Protein 6.1 g/dL (5.7-8.2)
[2024-12-12 07:01] LABS: Bilirubin, Total 0.3 mg/dL (0.2-1.0)
[2024-12-12 07:02] LABS: Albumin 2.7 g/dL (3.2-4.8); Calcium 7.4 mg/dL (8.7-10.4); Magnesium 1.3 mg/dL (1.6-2.6); Sodium 136 mmol/L (136-145)
[2024-12-12 07:23] LABS: Hematocrit 22.8 % (41.0-53.0); Hemoglobin 7.6 g/dL (13.5-17.5); Mean Corpuscular Hemoglobin 26.9 pg (28.0-32.0); Mean Corpuscular Volume 80.2 fL (80.0-100.0); Nucleated Red Blood Cells % 0.0 %
[2024-12-12] MEDS: FLUCONAZOLE 100 MG TAB PO SCH (09:11)
--- NOTE | 2024-12-12 14:02 | DVHPN2 ---
Subjective He is still complaining of right flank pain Blood culture is positive for Gram-positive cocci in clusters x2 bottles Changes from previous H/P or p: Changes Eyes: No Pain, No Vision change, No Conjunctivae inflammation, No Eyelid inflammation, No Other, No Redness ENT: No Ear pain, No Ear discharge, No Nose pain, No Nose discharge, No Nose congestion, No Mouth pain, No Mouth swelling, No Throat pain, No Throat swelling, No Other Respiratory: No Cough, No Dry, No Shortness of breath, No SOB with excertion, No Wheezing, No Hemoptysis, No Pleuritic Pain, No Sputum, No Other Gastrointestinal: Nausea; No Vomiting, No Abdominal Pain, No Diarrhea, No Constipation, No Melena, No Hematochezia, No Other Genitourinary: Dysuria, Frequency; No Incontinence; Hematuria; No Retention, No Other Musculoskeletal: No other, No neck pain, No shoulder pain, No arm pain, No back pain, No hand pain, No leg pain, No foot pain Skin: No Rash, No Lesions, No Jaundice, No Bruising, No Other Objective Vitals Vital Signs Date Time Temp Pulse Resp B/P (MAP) Pulse Ox O2 Delivery O2 Flow Rate FiO2 12/12/24 12:36 99.5 102 18 122/78 (93) 97 99.5 12/12/24 07:57 Room Air* 0 21 Intake/Output Intake and Output 12/12/24 07:00 Intake Total 990 ml Balance 990 ml Intake Oral 440 ml IV Total 550 ml # Voids 3 # Bowel Movements 3 General Appearance: Alert, Oriented X3, Cooperative Lungs: Clear to auscultation, Normal air movement Cardiovascular: Regular rate, Normal S1 Abdomen: Normal bowel sounds, Soft, No tenderness Extremities: No edema Medications Current Medications Medications Dose Ordered Sig/Eva Route Start Time Stop Time Status Last Admin Dose Admin Acetaminophen/ Hydrocodone Bitart 1 tab Q4HP PRN PO 12/10/24 23:30 Ondansetron HCl 4 mg Q4HP PRN IV 12/10/24 23:30 Acetaminophen 650 mg Q6HP PRN PO 12/10/24 23:30 Ceftriaxone Sodium 50 ml @ 100 mls/hr DAILY@2100 IV 12/11/24 21:00 12/11/24 22:49 100 MLS/HR Hydromorphone HCl 0.25 mg Q4HPRN PRN IV 12/10/24 23:30 Tamsulosin HCl 0.4 mg QPM PO 12/11/24 18:00 12/11/24 18:29 0.4 MG Pantoprazole Sodium 40 mg DAILY IV 12/11/24 10:00 12/12/24 09:10 40 MG Fluconazole 100 mg DAILY PO 12/12/24 10:00 12/12/24 09:11 100 MG Iron Sucrose 110 ml @ 110 mls/hr DAILY@1200 IV 12/11/24 12:00 12/15/24 12:59 12/12/24 12:47 110 MLS/HR Ferrous Sulfate 325 mg DAILY PO 12/11/24 10:00 12/12/24 09:11 325 MG Sodium Chloride 1,000 ml @ 75 mls/hr [id number] IV 12/11/24 12:30 12/11/24 12:30 75 MLS/HR Nystatin 5 ml Q6HR MT 12/11/24 18:00 12/12/24 12:47 5 ML Vancomycin HCl 0 ml @ 0 mls/hr PER PHARMACY IV 12/11/24 21:00 Laboratory Results Laboratory Tests 12/12/24 05:50 Chemistry Test 12/12/24 05:50 Albumin 2.7 g/dL (3.2-4.8) L Calcium Level 7.4 mg/dL (8.7-10.4) L Magnesium Level 1.3 mg/dL (1.6-2.6) L Total Protein 6.1 g/dL (5.7-8.2) LFT Test 12/12/24 05:50 Alanine Aminotransferase (ALT) 15 U/L (7-40) Alkaline Phosphatase 112 U/L (46-116) Aspartate Amino Transferase (AST) 24 U/L (13-40) Total Bilirubin 0.3 mg/dL (0.2-1.0) Urinalysis Test 12/10/24 18:37 Urine Color Light-brown (Yellow) Urine Clarity Turbid (Clear) H Urine pH 6.0 (5.0-9.0) Urine Specific [place] 1.013 (1.001-1.035) Urine Protein 1+ (Negative) H Urine Ketones Negative (Negative) Urine Blood 3+ /uL (Negative) H Urine Nitrite Negative (Negative) Urine Bilirubin Negative (Negative) Urine Urobilinogen Normal mg/dL (Negative) Urine Leukocyte Esterase 3+ /uL (Negative) Urine RBC 197 /hpf (0 - 3) Urine WBC Clumps Present /hpf (None Seen) Urine Microscopic WBC 297 /HPF (0-3) H Urine Squamous Epithelial Cells Few /hpf (<5) Urine Bacteria Few /hpf (None Seen) H Urine Mucus Few (None Seen) Urine Glucose Normal mg/dL (Normal) Microbiology Microbiology Date/Time Source Procedure Growth Status 12/10/24 23:56 Blood Blood Culture - Preliminary Resulted Assessment/Plan Assessment/Plan Right ureteral stone with hydronephrosis Bacteremia with Gram-positive cocci in clusters Acute complicated UTI HIV Methamphetamine abuse Oral candidiasis Chronic anemia of chronic disease Plan IV Rocephin IV vancomycin IV fluids Urology consult Strain the urine Nystatin swish and swallow Monitor closely Full code Advance directives discussed for 18 minutes Plan discussed with: Patient My Orders Orders - EDDIE PERALTA MD Procedure Category Date Status Time Nystatin PHA 12/11/24 In Process (Mouth-Throat) 18:00 Vancomycin Per PHA 12/11/24 In Process Pharmacy 21:00 Complete Blood Count LAB 12/13/24 Verified 04:00 Creatinine LAB 12/13/24 Verified 04:00 Vancomycin,Random LAB 12/13/24 Verified 04:00 Date of Service: Dec 12, 2024 Billing Provider: EDDIE PERALTA MD Common Visit Codes: [id number] INP/OBS CARE(HIGH) Secondary Visit Codes: [id number] CARE PLAN 30 MINUTES EDDIE PERALTA MD Dec 12, 2024 14:02
[2024-12-12] MEDS: ACETAMINOPHEN 325 MG TAB PO PRN (17:19)
[2024-12-13] VITALS (9 sets, daily range): BP systolic 115–140; BP diastolic 75–95; PULSE 82–124; RESP 17–18; TEMP 98.9–100; O2SAT 94–99
[2024-12-13 05:09] LABS: Hemoglobin 8.1 g/dL (13.5-17.5)
[2024-12-13 05:12] LABS: Hematocrit 24.0 % (41.0-53.0); Mean Corpuscular Hemoglobin 26.9 pg (28.0-32.0); Mean Corpuscular Volume 79.7 fL (80.0-100.0)
[2024-12-13 06:06] LABS: Total Cells Counted 100.0 (100)
--- NOTE | 2024-12-13 10:04 | DVHPN2 ---
Subjective He is still complaining of right flank pain Blood culture is positive for Gram-positive cocci in clusters x2 bottles He is also complaining of rectal pain Changes from previous H/P or p: Changes Eyes: No Pain, No Vision change, No Conjunctivae inflammation, No Eyelid inflammation, No Other, No Redness ENT: No Ear pain, No Ear discharge, No Nose pain, No Nose discharge, No Nose congestion, No Mouth pain, No Mouth swelling, No Throat pain, No Throat swelling, No Other Respiratory: No Cough, No Dry, No Shortness of breath, No SOB with excertion, No Wheezing, No Hemoptysis, No Pleuritic Pain, No Sputum, No Other Gastrointestinal: Nausea; No Vomiting, No Abdominal Pain, No Diarrhea, No Constipation, No Melena, No Hematochezia, No Other Genitourinary: Dysuria, Frequency; No Incontinence; Hematuria; No Retention, No Other Musculoskeletal: No other, No neck pain, No shoulder pain, No arm pain, No back pain, No hand pain, No leg pain, No foot pain Skin: No Rash, No Lesions, No Jaundice, No Bruising, No Other Objective Vitals Vital Signs Date Time Temp Pulse Resp B/P (MAP) Pulse Ox O2 Delivery O2 Flow Rate FiO2 12/13/24 07:47 94 Room Air* 0 21 12/13/24 05:00 99.9 104 18 140/92 (108) 99.9 Intake/Output Intake and Output 12/13/24 07:00 Intake Total 1830 ml Output Total 850 ml Balance 980 ml Intake Oral 930 ml IV Total 900 ml Output Urine Total 850 ml # Voids 4 # Bowel Movements 4 General Appearance: Alert, Oriented X3, Cooperative Lungs: Clear to auscultation, Normal air movement Cardiovascular: Regular rate, Normal S1 Abdomen: Normal bowel sounds, Soft, No tenderness Extremities: No edema Medications Current Medications Medications Dose Ordered Sig/Eva Route Start Time Stop Time Status Last Admin Dose Admin Acetaminophen/ Hydrocodone Bitart 1 tab Q4HP PRN PO 12/10/24 23:30 Ondansetron HCl 4 mg Q4HP PRN IV 12/10/24 23:30 Acetaminophen 650 mg Q6HP PRN PO 12/10/24 23:30 12/12/24 17:19 650 MG Ceftriaxone Sodium 50 ml @ 100 mls/hr DAILY@2100 IV 12/11/24 21:00 12/12/24 21:02 100 MLS/HR Hydromorphone HCl 0.25 mg Q4HPRN PRN IV 12/10/24 23:30 Tamsulosin HCl 0.4 mg QPM PO 12/11/24 18:00 12/12/24 17:19 0.4 MG Pantoprazole Sodium 40 mg DAILY IV 12/11/24 10:00 12/13/24 08:42 40 MG Fluconazole 100 mg DAILY PO 12/12/24 10:00 12/13/24 08:43 100 MG Iron Sucrose 110 ml @ 110 mls/hr DAILY@1200 IV 12/11/24 12:00 12/15/24 12:59 12/12/24 12:47 110 MLS/HR Ferrous Sulfate 325 mg DAILY PO 12/11/24 10:00 12/13/24 08:44 325 MG Sodium Chloride 1,000 ml @ 75 mls/hr [id number] IV 12/11/24 12:30 12/12/24 21:02 75 MLS/HR Nystatin 5 ml Q6HR MT 12/11/24 18:00 12/13/24 05:12 5 ML Vancomycin HCl 0 ml @ 0 mls/hr PER PHARMACY IV 12/11/24 21:00 Hydrocortisone 1 applic BID MT 12/13/24 10:00 Laboratory Results Laboratory Tests 12/12/24 05:50 12/13/24 04:20 Urinalysis Test 12/10/24 18:37 Urine Color Light-brown (Yellow) Urine Clarity Turbid (Clear) H Urine pH 6.0 (5.0-9.0) Urine Specific [place] 1.013 (1.001-1.035) Urine Protein 1+ (Negative) H Urine Ketones Negative (Negative) Urine Blood 3+ /uL (Negative) H Urine Nitrite Negative (Negative) Urine Bilirubin Negative (Negative) Urine Urobilinogen Normal mg/dL (Negative) Urine Leukocyte Esterase 3+ /uL (Negative) Urine RBC 197 /hpf (0 - 3) Urine WBC Clumps Present /hpf (None Seen) Urine Microscopic WBC 297 /HPF (0-3) H Urine Squamous Epithelial Cells Few /hpf (<5) Urine Bacteria Few /hpf (None Seen) H Urine Mucus Few (None Seen) Urine Glucose Normal mg/dL (Normal) Microbiology Microbiology Date/Time Source Procedure Growth Status 12/11/24 06:49 Nose MRSA Screen - Final Complete 12/10/24 23:56 Blood Blood Culture - Preliminary Resulted 12/10/24 18:37 Voided Urine Urine Culture - Preliminary Resulted Assessment/Plan Assessment/Plan Right ureteral stone with hydronephrosis Bacteremia with Gram-positive cocci in clusters Acute complicated UTI HIV Methamphetamine abuse Oral candidiasis Chronic anemia of chronic disease Anal fissure Plan IV Rocephin IV vancomycin IV fluids Urology consult Strain the urine Nystatin swish and swallow Monitor closely Full code Advance directives discussed for 18 minutes 12/13/2024: Anal fissure: Start hydrocortisone rectal cream b.i.d. Oral candidiasis: Continue nystatin swish and swallow Right ureteral stone with hydronephrosis: Urology consult is pending, Flomax, IV fluids Bacteremia with Gram-positive cocci in clusters: Get an echocardiogram and consult Infectious Disease , Rocephin and vancomycin HIV Monitor closely Plan discussed with: Patient My Orders Orders - EDDIE PERALTA MD Procedure Category Date Status Time Echo 2d Mode Cardiac US 12/13/24 Logged DOP 08:41 * Infectious Ramo- CONS 12/13/24 Transmitted K Laureano 08:41 Hydrocortone 2.5% PHA 12/13/24 In Process Topical Crm (Hydrocort 10:00 Date of Service: Dec 13, 2024 Billing Provider: EDDIE PERALTA MD Common Visit Codes: [id number] INP/OBS CARE(HIGH) EDDIE PERALTA MD Dec 13, 2024 10:04
[2024-12-13] MEDS: MAGNESIUM SULFATE 1GM/100ML 100 ML IV SCH (11:42)
[2024-12-13] MEDS: HYDROCORTISONE 2.5% TOPICAL CREAM 30GM TUBE PR SCH (11:42)
[2024-12-13] MEDS: VANCOMYCIN 1.25GM/250ML 250 ML IV SCH (13:00)
--- NOTE | 2024-12-13 15:31 | DVHINCON2 ---
Date of service: Dec 13, 2024 Referring Physician hospitalist Reason for Consultation 33-year-old male with past medical history of HIV for 3 years(taking BIKTARVY) who has come to the emergency with chief complaints of abdominal pain in the right lower quadrant for the past 1 week as well as blood in his urine since yesterday. Patient states that last Friday he started to have abdominal pain which was gradual in onset, increasing in intensity, localized to the right lower quadrant, constant and stabbing, 7/10 in intensity for which he visited [facility] where he was told that he had a kidney infection and stone and was treated for it but left AMA after 3 days of hospitalization as he was not given any food there. Patient reports that since yesterday he saw bright red blood in his urine and the abdominal pain has been increasing in intensity for which he decided to come to the ER. He states that he has increased Nausea, urinary frequency, presence of dysuria, but denies burning micturition, fever, chills, vomiting. On admission he was septic with tachycardia- pulse 119, temperature 101.3 and urine analysis showed Urine turbid, protein 1+, blood 3+, leukocyte esterase 3+, WBC clumps present, WBC 297, bacteria few. CT abdomen and pelvis shows 13 mm calculi in the right renal pelvis and mild hydronephrosis. We are admitting the patient for further workup and management. Past medical history: HIV Past Surgical history: Denies Family history: Reviewed and noncontributory to the management of this case Social history: Patient smokes 8 cigarettes/day for 18 years, smokes meth- has been doing so for 20 years, denies any alcohol use Medication: Biktarvy for HIV PCP: Does not have one Code status: Full code History of Present Illness History Source: Patient, RN Notes, MD Notes, Old Records Exam Limitations: No limitations HPI 33-year-old male with past medical history of HIV for 3 years(taking BIKTARVY) who has come to the emergency with chief complaints of abdominal pain in the right lower quadrant for the past 1 week as well as blood in his urine since yesterday. Patient states that last Friday he started to have abdominal pain which was gradual in onset, increasing in intensity, localized to the right lower quadrant, constant and stabbing, 7/10 in intensity for which he visited [facility] where he was told that he had a kidney infection and stone and was treated for it but left AMA after 3 days of hospitalization as he was not given any food there. Patient reports that since yesterday he saw bright red blood in his urine and the abdominal pain has been increasing in intensity for which he decided to come to the ER. He states that he has increased Nausea, urinary frequency, presence of dysuria, but denies burning micturition, fever, chills, vomiting. On admission he was septic with tachycardia- pulse 119, temperature 101.3 and urine analysis showed Urine turbid, protein 1+, blood 3+, leukocyte esterase 3+, WBC clumps present, WBC 297, bacteria few. CT abdomen and pelvis shows 13 mm calculi in the right renal pelvis and mild hydronephrosis. We are admitting the patient for further workup and management. Past medical history: HIV Past Surgical history: Denies Family history: Reviewed and noncontributory to the management of this case Social history: Patient smokes 8 cigarettes/day for 18 years, smokes meth- has been doing so for 20 years, denies any alcohol use Medication: Biktarvy for HIV PCP: Does not have one Code status: Full code Past Medical History Infectious Disease: HIV Review of Systems Gastrointestinal: Abdominal Pain Genitourinary: Pain H&P Exam Vital Signs Vital Signs Date Time Temp Pulse Resp B/P (MAP) Pulse Ox O2 Delivery O2 Flow Rate FiO2 12/13/24 13:00 100.0 99 18 132/95 (107) 95 100.0 12/13/24 07:47 Room Air* 0 21 General Appeara: Well developed, Well nourished, Normal Appearance Pulmonary/Respiratory: Normal inspection, Normal breath sounds, Chest non- tender, Lungs clear Cardiovascular/Chest: Normal inspection, Regular rate, Normal Rhythm Neuro/Mental St: Alert, Oriented Appearance: Appropriate appearance, Appropriate insight Eye contact/ Speech: Cooperative, Good eye contact, Normal speech Skin Exam: Normal inspection, Normal color, Warm/dry Labs/Xrays [facility] [place] [id number] [place] [id number] Ph: [phone] DIAGNOSTIC IMAGING Diagnostic Imaging Report : [id number] Signed [id number] UNIT: [id number] : 1990 LOC: ER ROOM / BED: / AGE / SEX: 33 / M ADM STATUS: REG ER SERVICE 09 ORDERING PHYSICIAN: TONJA CHRISTINA PAC PROCEDURE(s): ABPL - CT AB PEL WO CON-NO ORAL OR IV REASON: Right-sided flank pain ORDER NUMBER(s): [id number], ACCESSION NUMBER(s): [id number] Exam: CT CT AB PEL WO CON-NO ORAL OR IV History: Right-sided flank pain Comparison Study: CT CHEST on DOS: 11/21/23, CT ABD/PEL on DOS: 11/15/23, CT ABD/PEL on DOS: 08/03/23, CT ABD/PEL on DOS: 07/12/23, CT ABD/PEL W - IV on DOS: 06/13/23 TECHNIQUE: Multidetector CT of the abdomen and pelvis was performed from lung bases to pubic symphysis. Imaging was performed without IV contrast. Axial, coronal, and sagittal multiplanar reformats were obtained from the axial data set by the technologist. RADIATION DOSE: CTDI vol 5.16 mGy. DLP 291.67 mGy.cm Findings: Limited evaluation of the solid organs in the absence of IV contrast. Lungs: Atelectasis/scarring most pronounced within the right middle lobe. Liver: Unremarkable. Spleen: Unremarkable. Pancreas: Unremarkable. Gallbladder: Unremarkable. Adrenals: Unremarkable Kidneys: 13 mm calculus in the region of the right renal pelvis. Mild right hydronephrosis. Pelvic Viscera: Unremarkable. Vasculature: Unremarkable. Retroperitoneum: Nonspecific mild retroperitoneal adenopathy. Mild hazy appea cesar of the mesentery. Bowel: No bowel obstruction. Musculoskeletal: Unremarkable. Soft tissues: Diffuse subcutaneous edema. Impression: 1. Limited evaluation as above. 13 mm calculus in the region of the right renal pelvis, comparison with prior imaging is suggested. Mild right hydronephrosis. 2. Mild hazy appearance of the mesentery and diffuse subcutaneous edema. 3. Additional findings as detailed. ATED BY: JOANNE CANALES MD DICTATED DATE/TIME: 12/10/241904 SIGNED BY: JOANNE CANALES MD SIGNED DATE/TIME: 12/10/241904 CC: Labs Test 12/13/24 04:20 12/12/24 05:50 12/11/24 05:06 12/10/24 23:56 Range/Units White Blood Count 5.4 4.4-10.8 10^3/uL Red Blood Count 3.01 L 4.5-5.90 10^6/uL Hemoglobin 8.1 L 13.5-17.5 g/dL Hematocrit 24.0 L 41.0-53.0 % Mean Corpuscular Volume 79.7 L 80.0-100.0 fL Mean Corpuscular Hemoglobin 26.9 L 28.0-32.0 pg Mean Corpuscular Hemoglobin Concent 33.8 32.0-36.0 g/dL Red Cell Distribution Width 16.5 H 11.8-14.3 % Platelet Count 273 140-450 10^3/uL Mean Platelet Volume 8.0 6.9-10.8 fL Neutrophils (%) (Auto) 37.0-80.0 % Lymphocytes (%) (Auto) 10.0-50.0 % Monocytes (%) (Auto) 0.0-12.0 % Basophils (%) (Auto) 0.0-2.0 % Neutrophils # (Auto) 1.6-8.6 10 ^3/uL Lymphocytes # (Auto) 0.4-5.4 10 ^3/uL Monocytes # (Auto) 0-1.3 10 ^3/uL Differential Total Cells Counted 100.0 100 Neutrophils % (Manual) 76 37.0-80.0 Band Neutrophils % (Manual) 3 Lymphocytes % (Manual) 21 10.0-50.0 Monocytes % (Manual) 0 0-12 Eosinophils % (Manual) 0 0-7 Basophils % (Manual) 0 0.0-2.0 Metamyelocytes % (manual) 0 Myelocytes % (Manual) 0 Promyelocytes % (Manual) 0 Blast Cells % (Manual) 0 Reactive Lymphocytes 0 Platelet Estimate Adequate Creatinine 0.84 0.700-1.30 mg/dL Glomerular Filtration Rate Calc 117 >90 mL/min Random Vancomycin Level 4.1 L 5-10 ug/mL Eosinophils (%) (Auto) 0.4 0.0-7.0 % Eosinophils # (Auto) 0 0-0.8 10 ^3/uL Basophils # (Auto) 0 0-0.2 10 ^3/uL Nucleated Red Blood Cells 0.0 % Sodium Level 136 136-145 mmol/L Potassium Level 3.7 3.5-5.1 mmol/L Chloride Level 100 98-107 mmol/L Carbon Dioxide Level 27 20-31 mmol/L Anion Gap 9 5-15 Blood Urea Nitrogen 9 9-23 mg/dL BUN/Creatinine Ratio 11.4 10.0-20.0 Serum Glucose 88 74-106 mg/dL Calcium Level 7.4 L 8.7-10.4 mg/dL Magnesium Level 1.3 L 1.6-2.6 mg/dL Total Bilirubin 0.3 0.2-1.0 mg/dL Aspartate Amino Transferase (AST) 24 13-40 U/L Alanine Aminotransferase (ALT) 15 7-40 U/L Alkaline Phosphatase 112 46-116 U/L Total Protein 6.1 5.7-8.2 g/dL Albumin 2.7 L 3.2-4.8 g/dL Urine Opiates Screen Neg NEGATIVE Urine Fentanyl Screen Pos NEGATIVE Urine Barbiturates Screen Neg NEGATIVE Urine Phencyclidine Screen Neg NEGATIVE Urine Amphetamines Screen Pos NEGATIVE Urine Benzodiazepines Screen Neg NEGATIVE Urine Cocaine Screen Neg NEGATIVE Urine Cannabinoids Screen Neg NEGATIVE Prothrombin Time 11.9 H 9.3-11.8 sec Prothrombin Time INR 1.14 0.9-1.15 Activated Partial Thromboplast Time 29.9 24.5-34.5 SEC Lactic Acid Level 1.6 0.4-2.0 mmol/L Direct Bilirubin 0.2 <0.3 mg/dL Test 12/10/24 18:54 12/10/24 18:37 Range/Units Iron Level 14 L 65-175 ug/dL Total Iron Binding Capacity 186 L 250-425 ug/dL Percent Iron Saturation 7.5 L 20-55 % Ferritin 590.3 H 22-322 ng/mL Urine Color Light-brown Yellow Urine Clarity Turbid H Clear Urine pH 6.0 5.0-9.0 Urine Specific [place] 1.013 1.001-1.035 Urine Protein 1+ H Negative Urine Ketones Negative Negative Urine Blood 3+ H Negative /uL Urine Nitrite Negative Negative Urine Bilirubin Negative Negative Urine Urobilinogen Normal Negative mg/dL Urine Leukocyte Esterase 3+ Negative /uL Urine RBC 197 0 - 3 /hpf Urine WBC Clumps Present None Seen /hpf Urine Microscopic WBC 297 H 0-3 /HPF Urine Squamous Epithelial Cells Few <5 /hpf Urine Bacteria Few H None Seen /hpf Urine Mucus Few None Seen Urine Glucose Normal Normal mg/dL Microbiology Date/Time Source Procedure Growth Status 12/11/24 06:49 Nose MRSA Screen - Final Complete 12/10/24 23:56 Blood Blood Culture - Final Methicillin Resistant S.aureus Complete 12/10/24 18:37 Voided Urine Urine Culture - Final Methicillin Resistant S.aureus Complete Assessment/Plan Problem List: (1) Kidney stone Plan continue IV MRSA coverage per ID/primary care monitor renal function definitive stone management to be arranged on outpt basis when bacteremia has resolved. Plan discussed with: Patient, Other XAVIER ANGEL NP Dec 13, 2024 15:31
--- NOTE | 2024-12-13 17:10 | DVHINCON2 ---
Date of service: Dec 13, 2024 Allergies: Coded Allergies: NO KNOWN ALLERGIES (Unverified , 03/28/24) Current Medications Current Medications Medications (Trade) Dose Ordered Sig/Eva Route PRN Reason Start Time Stop Time Status Last Admin Hydrocortisone (Hydrocortisone 2.5% Cream) 1 applic BID NV 12/13/24 10:00 12/13/24 11:42 Magnesium Sulfate/ Dextrose 100 ml @ 100 mls/hr Q1HR IV 12/13/24 11:00 12/13/24 12:59 DC 12/13/24 11:42 Vancomycin HCl 250 ml @ 200 mls/hr Q8H IV 12/13/24 13:00 Vital Signs Vital Signs Date Time Temp Pulse Resp B/P (MAP) Pulse Ox O2 Delivery O2 Flow Rate FiO2 12/13/24 16:53 99.2 124 18 121/85 (97) 98 99.2 12/13/24 07:47 Room Air* 0 21 Labs/Diagnostic Data Labs Test 12/13/24 04:20 12/12/24 05:50 12/11/24 05:06 12/10/24 23:56 Range/Units White Blood Count 5.4 4.4-10.8 10^3/uL Red Blood Count 3.01 L 4.5-5.90 10^6/uL Hemoglobin 8.1 L 13.5-17.5 g/dL Hematocrit 24.0 L 41.0-53.0 % Mean Corpuscular Volume 79.7 L 80.0-100.0 fL Mean Corpuscular Hemoglobin 26.9 L 28.0-32.0 pg Mean Corpuscular Hemoglobin Concent 33.8 32.0-36.0 g/dL Red Cell Distribution Width 16.5 H 11.8-14.3 % Platelet Count 273 140-450 10^3/uL Mean Platelet Volume 8.0 6.9-10.8 fL Neutrophils (%) (Auto) 37.0-80.0 % Lymphocytes (%) (Auto) 10.0-50.0 % Monocytes (%) (Auto) 0.0-12.0 % Basophils (%) (Auto) 0.0-2.0 % Neutrophils # (Auto) 1.6-8.6 10 ^3/uL Lymphocytes # (Auto) 0.4-5.4 10 ^3/uL Monocytes # (Auto) 0-1.3 10 ^3/uL Differential Total Cells Counted 100.0 100 Neutrophils % (Manual) 76 37.0-80.0 Band Neutrophils % (Manual) 3 Lymphocytes % (Manual) 21 10.0-50.0 Monocytes % (Manual) 0 0-12 Eosinophils % (Manual) 0 0-7 Basophils % (Manual) 0 0.0-2.0 Metamyelocytes % (manual) 0 Myelocytes % (Manual) 0 Promyelocytes % (Manual) 0 Blast Cells % (Manual) 0 Reactive Lymphocytes 0 Platelet Estimate Adequate Creatinine 0.84 0.700-1.30 mg/dL Glomerular Filtration Rate Calc 117 >90 mL/min Random Vancomycin Level 4.1 L 5-10 ug/mL Eosinophils (%) (Auto) 0.4 0.0-7.0 % Eosinophils # (Auto) 0 0-0.8 10 ^3/uL Basophils # (Auto) 0 0-0.2 10 ^3/uL Nucleated Red Blood Cells 0.0 % Sodium Level 136 136-145 mmol/L Potassium Level 3.7 3.5-5.1 mmol/L Chloride Level 100 98-107 mmol/L Carbon Dioxide Level 27 20-31 mmol/L Anion Gap 9 5-15 Blood Urea Nitrogen 9 9-23 mg/dL BUN/Creatinine Ratio 11.4 10.0-20.0 Serum Glucose 88 74-106 mg/dL Calcium Level 7.4 L 8.7-10.4 mg/dL Magnesium Level 1.3 L 1.6-2.6 mg/dL Total Bilirubin 0.3 0.2-1.0 mg/dL Aspartate Amino Transferase (AST) 24 13-40 U/L Alanine Aminotransferase (ALT) 15 7-40 U/L Alkaline Phosphatase 112 46-116 U/L Total Protein 6.1 5.7-8.2 g/dL Albumin 2.7 L 3.2-4.8 g/dL Urine Opiates Screen Neg NEGATIVE Urine Fentanyl Screen Pos NEGATIVE Urine Barbiturates Screen Neg NEGATIVE Urine Phencyclidine Screen Neg NEGATIVE Urine Amphetamines Screen Pos NEGATIVE Urine Benzodiazepines Screen Neg NEGATIVE Urine Cocaine Screen Neg NEGATIVE Urine Cannabinoids Screen Neg NEGATIVE Prothrombin Time 11.9 H 9.3-11.8 sec Prothrombin Time INR 1.14 0.9-1.15 Activated Partial Thromboplast Time 29.9 24.5-34.5 SEC Lactic Acid Level 1.6 0.4-2.0 mmol/L Direct Bilirubin 0.2 <0.3 mg/dL Test 12/10/24 18:54 12/10/24 18:37 Range/Units Iron Level 14 L 65-175 ug/dL Total Iron Binding Capacity 186 L 250-425 ug/dL Percent Iron Saturation 7.5 L 20-55 % Ferritin 590.3 H 22-322 ng/mL Urine Color Light-brown Yellow Urine Clarity Turbid H Clear Urine pH 6.0 5.0-9.0 Urine Specific [place] 1.013 1.001-1.035 Urine Protein 1+ H Negative Urine Ketones Negative Negative Urine Blood 3+ H Negative /uL Urine Nitrite Negative Negative Urine Bilirubin Negative Negative Urine Urobilinogen Normal Negative mg/dL Urine Leukocyte Esterase 3+ Negative /uL Urine RBC 197 0 - 3 /hpf Urine WBC Clumps Present None Seen /hpf Urine Microscopic WBC 297 H 0-3 /HPF Urine Squamous Epithelial Cells Few <5 /hpf Urine Bacteria Few H None Seen /hpf Urine Mucus Few None Seen Urine Glucose Normal Normal mg/dL Microbiology Date/Time Source Procedure Growth Status 12/11/24 06:49 Nose MRSA Screen - Final Complete 12/10/24 23:56 Blood Blood Culture - Final Methicillin Resistant S.aureus Complete 12/10/24 18:37 Voided Urine Urine Culture - Final Methicillin Resistant S.aureus Complete Problems(with codes): (1) MRSA (methicillin resistant Staphylococcus aureus) septicemia (2) MRSA (methicillin resistant staph aureus) culture positive (3) AIDS (4) HIV disease (5) Pyelonephritis (6) Hydronephrosis concurrent with and due to calculi of kidney and ureter (7) Anemia (8) Kidney stone (9) Infected blister of right middle finger (10) Fracture, finger, distal phalanx Plan/Recommendation ASSESSMENT AND PLAN: ID Problem List: \-- MRSA bacteremia \-- MRSA urinary tract infection \-- Right renal pelvis calculus (13 mm) with mild right hydronephrosis \-- Gross hematuria \-- Right flank pain with radiation to groin; right CVA tenderness \-- HIV/AIDS (CD4 count 8 cells/L per prior record; HIV RNA ~11,900 copies/mL) \-- Dysphagia (on nystatin per transcript) \-- Anemia (Hgb 8.3 g/dL noted) \-- Tobacco use disorder (18 cigarettes/day x 18 years) \-- Methamphetamine use (smoked); urine drug screen reportedly positive for fentanyl and amphetamines \-- Homelessness \-- History of third digit osteomyelitis (postsafety pin injury), previously treated with IV antibiotics Assessment: 33-year-old male with advanced HIV/AIDS (CD4 8) and viremia, presenting with fever/chills, severe right flank pain radiating to groin, and gross hematuria. Imaging shows a 13 mm right renal pelvis stone with mild hydronephrosis. Urinalysis notable for pyuria (WBC ~297/HPF) and 3+ leukocyte esterase; urine culture positive for MRSA. Blood cultures positive for MRSA (reported vancomycin MAIRA ~2). Clinical picture consistent with complicated pyelonephritis/obstructive uropathy with MRSA bacteremia. Urology evaluated; definitive stone management to be arranged outpatient. Vancomycin troughs subtherapeutic to date. Echocardiogram pending to rule out endocarditis. There are transcript statements to hold ART pending resistance/adherence assessment and to consider OI prophylaxis; conflicting statements regarding need for/continuation of fluconazole are present and require clarification. Plan: \-- Continue anti-MRSA therapy; adjust vancomycin dosing to achieve therapeutic exposure given subtherapeutic troughs reported \-- Repeat blood cultures to document clearance of bacteremia \-- Obtain transthoracic echocardiogram (pending) to evaluate for endocarditis \-- Antimicrobial course: presumptive need for 4 weeks of anti-MRSA therapy; consider transition to linezolid or trimethoprim-sulfamethoxazole (Bactrim) depending on tolerance and insurance coverage (per transcript) \-- UTI/stone: monitor renal function; urology recommends definitive stone ma nagement as outpatient \-- HIV management: hold ART for now pending adherence discussion and resistance testing (reflex HIV testing with [employer] per transcript); reassess continuation of Biktarvy once data and adherence plan are clarified \-- Opportunistic infection considerations: consider MAC and PJP prophylaxis; screen for CMV and cryptococcal disease (per transcript) \-- STI/viral hepatitis: screen for acute hepatitis; obtain gonorrhea and chlamydia testing \-- Substance use: obtain/confirm urine drug screen (transcript notes possible positive for fentanyl and amphetamines); provide counseling and support as feasible \-- Dysphagia/esophagitis: continue nystatin solution swish and swallow; consider GI consult if inadequate oral intake persists \-- QTc: obtain EKG to assess QTc (per transcript) \-- Antifungal therapy: transcript contains conflicting guidance (no need for fluconazole vs continue oral fluconazole; consider dose increase); clarify necessity before continuation \-- Hematology/iron: avoid IV iron during active bacteremia; consider oral or IV iron as outpatient after infection resolves \-- Analgesia, DVT prophylaxis, and other supportive care: Not provided in transcript Isolation Precautions: Not specified in transcript Electronically signed by: Nai Tinsley MD, 12/13/2024 HISTORY: The patient's chart and medications were reviewed in detail and the patient was seen and examined. History obtained from: Not specified in transcript. Mr. Martinez Jack is a 33-year-old male with history of HIV on Biktarvy for ~3 years, prior third digit osteomyelitis (postsafety pin injury) treated with IV antibiotics, kidney stones, who presents with severe right flank/groin pain, gross hematuria, fever/chills. Recent hospitalization at [facility] for presumed kidney infection; left AMA after [address] abdomen demonstrated a 13 mm right renal pelvis calculus with mild hydronephrosis. UA with marked pyuria and 3+ leukocyte esterase; urine and blood cultures positive for MRSA (vancomycin MAIRA ~2). Prior records (Nov 2020) note CD4 count 8 cells/L (3.8%), detectable viral load (~11,900 copies/mL). Urology recommends outpatient definitive stone management. ID plan includes ongoing MRSA coverage, repeat cultures, echocardiogram, potential transition to linezolid/Bactrim, and holding ART pending adherence/resistance assessment. REVIEW OF SYSTEMS: -Constitutional: Feverish chills reported. -Genitourinary: Gross hematuria reported. -Gastrointestinal: Abdominal pain reported. -Other systems: Not discussed in transcript. PAST MEDICAL HISTORY: -HIV infection; in AIDS category for >1 year (CD4 8 cells/L reported from prior record) -Kidney stones -History of osteomyelitis of third finger (postsafety pin injury), treated with IV antibiotics Date(s) of diagnoses: Not provided in transcript. PAST SURGICAL HISTORY: Not provided in transcript. HOME MEDICATIONS: -Biktarvy (bictegravir/emtricitabine/tenofovir alafenamide) on for ~3 years (per transcript) Other home medications: Not provided in transcript. ALLERGIES: Not provided in transcript. FAMILY HISTORY: Not provided in transcript. SOCIAL HISTORY: -Housing: Homeless -Tobacco: Active smoker; 18 cigarettes/day for 18 years -Substances: Smokes methamphetamine; denies IV drug use (transcript also notes UDS possibly positive for fentanyl and amphetamines) -Alcohol: Denies use -Sexual history: Not provided in transcript -Occupation/other: Not provided in transcript OBJECTIVE: Vital Signs on Arrival (as documented in transcript): -Temperature: 98.4 F, later up to 101 F -Blood Pressure: 114/70 mmHg -Heart Rate: Not provided in this time segment -Respiratory Rate: 19/min -SpO2: Not clearly documented (diabetes physician unclear) Most Recent/Current Vital Signs (as documented in transcript): -Temperature: 102.1102.3 F -Blood Pressure: 140/92 mmHg -Heart Rate: 104/min -Respiratory: On room air; rate not restated -SpO2: Not provided in transcript Admission Weight/BMI: Not provided in transcript. PHYSICAL EXAM: General: NAD Neck: Supple. No masses. HEENT: PERRL. Normal lids and conjunctiva. Moist mucous membranes. Oropharynx without lesions, exudates or excessive erythema. Normal appearance of the external aspects of the nose and ears. Heart: Regular rhythm, normal rate. No murmur. No lower extremity edema. Lungs: Normal respiratory effort. Clear to auscultation bilaterally. No wheezes. No crackles. Abdomen: Soft. Non-tender. Non-distended. No masses or abdominal hernia. Right CVA tenderness present. Msk: No digital cyanosis. Normal strength and tone in all 4 limbs Skin: Warm and dry, no rashes. Neuro: Alert. No facial droop or slurred speech. Extra-ocular movements intact. Sensation intact to soft touch in all 4 limbs. Psych: Appropriate mood. Full affect. Oriented to person, place, time, and situation. LINES: Active lines: Not provided in transcript. DIAGNOSTIC STUDIES: -Laboratory Data (as documented in transcript; may represent different time points/settings): Serum WBC 29.7 K/L (reported) Later WBC 8 K/L; elsewhere 6.3 K/L (reported) Hemoglobin 8.3 g/dL Platelets 254 K/L; elsewhere 132 K/L (reported) Creatinine 1.0 mg/dL; BUN 12 mg/dL UA: few epithelial cells; WBCs ~297/HPF; leukocyte esterase 3+; nitrite negative Blood cultures: MRSA positive (vancomycin MAIRA ~2) Urine culture: MRSA positive HIV RNA PCR ~11,900 copies/mL (prior record) CD4 count 8 cells/L; CD4% 3.8% (prior record) AFB sputums and MTB PCR previously negative (historical) -Microbiology: MRSA bacteremia and MRSA UTI (per transcript) -Pertinent Imaging: CT Abdomen: 13 mm calculus in right renal pelvis with mild hydronephrosis; mild hazy appearance of mesentery; diffuse subcutaneous edema; no mention of ap pendix in report (per transcript) Appendix ultrasound: Appendix not visualized (per transcript) -Cardiac Studies: Echocardiogram: Pending (to evaluate for endocarditis) MEDICATIONS (INPATIENT, MENTIONED IN TRANSCRIPT): -Ceftriaxone (ongoing) -Vancomycin (ongoing; subtherapeutic troughs reported; dosing adjustments planned) -Nystatin oral solution (for dysphagia) -Fluconazole: Conflicting transcript statements (no need vs continue at current dose; consider increase) requires clarification Further inpatient medications/supportive therapies: Not provided in transcript. Plan discussed with: Patient NAI TINSLEY MD Dec 13, 2024 17:10
[2024-12-13] MEDS ORDERED: LINEZOLID 600MG/300ML 300 ML IV SCH (17:45)
[2024-12-13] MEDS: LINEZOLID 600MG/300ML 300 ML IV SCH (22:06)
[2024-12-14] VITALS (8 sets, daily range): BP systolic 111–125; BP diastolic 70–85; PULSE 77–114; RESP 17–18; TEMP 98.2–100.6; O2SAT 98–100
[2024-12-14] MEDS: HYDROcodone-ACET 5/325MG TAB PO PRN (01:19)
--- NOTE | 2024-12-14 09:43 | DVHPN2 ---
Subjective No new complaints Changes from previous H/P or p: Changes Eyes: No Pain, No Vision change, No Conjunctivae inflammation, No Eyelid inflammation, No Other, No Redness ENT: No Ear pain, No Ear discharge, No Nose pain, No Nose discharge, No Nose congestion, No Mouth pain, No Mouth swelling, No Throat pain, No Throat swelling, No Other Respiratory: No Cough, No Dry, No Shortness of breath, No SOB with excertion, No Wheezing, No Hemoptysis, No Pleuritic Pain, No Sputum, No Other Gastrointestinal: Nausea; No Vomiting, No Abdominal Pain, No Diarrhea, No Constipation, No Melena, No Hematochezia, No Other Genitourinary: Dysuria, Frequency; No Incontinence; Hematuria; No Retention, No Other Musculoskeletal: No other, No neck pain, No shoulder pain, No arm pain, No back pain, No hand pain, No leg pain, No foot pain Skin: No Rash, No Lesions, No Jaundice, No Bruising, No Other Objective Vitals Vital Signs Date Time Temp Pulse Resp B/P (MAP) Pulse Ox O2 Delivery O2 Flow Rate FiO2 12/14/24 08:35 98.2 85 18 125/85 (98) 100 98.2 12/14/24 08:00 Room Air* 0 21 Intake/Output Intake and Output 12/14/24 07:00 Intake Total 2960 ml Output Total 390 ml Balance 2570 ml Intake Oral 1360 ml IV Total 1600 ml Output Urine Total 390 ml # Voids 10 # Bowel Movements 3 General Appearance: Alert, Oriented X3, Cooperative Lungs: Clear to auscultation, Normal air movement Cardiovascular: Regular rate, Normal S1 Abdomen: Normal bowel sounds, Soft, No tenderness Extremities: No edema Medications Current Medications Medications Dose Ordered Sig/Eva Route Start Time Stop Time Status Last Admin Dose Admin Acetaminophen/ Hydrocodone Bitart 1 tab Q4HP PRN PO 12/10/24 23:30 12/14/24 01:19 1 TAB Ondansetron HCl 4 mg Q4HP PRN IV 12/10/24 23:30 Acetaminophen 650 mg Q6HP PRN PO 12/10/24 23:30 12/12/24 17:19 650 MG Hydromorphone HCl 0.25 mg Q4HPRN PRN IV 12/10/24 23:30 Pantoprazole Sodium 40 mg DAILY IV 12/11/24 10:00 12/13/24 08:42 40 MG Fluconazole 100 mg DAILY PO 12/12/24 10:00 12/13/24 08:43 100 MG Ferrous Sulfate 325 mg DAILY PO 12/11/24 10:00 12/13/24 08:44 325 MG Sodium Chloride 1,000 ml @ 75 mls/hr [id number] IV 12/11/24 12:30 12/14/24 06:02 75 MLS/HR Nystatin 5 ml Q6HR MT 12/11/24 18:00 12/14/24 05:58 5 ML Hydrocortisone 1 applic BID ME 12/13/24 10:00 12/13/24 22:15 1 APPLIC Linezolid 300 ml @ 150 mls/hr Q12HR@1000,2200 IV 12/13/24 22:00 12/13/24 22:06 150 MLS/HR Laboratory Results Laboratory Tests 12/12/24 05:50 12/13/24 04:20 12/14/24 04:25 Urinalysis Test 12/10/24 18:37 Urine Color Light-brown (Yellow) Urine Clarity Turbid (Clear) H Urine pH 6.0 (5.0-9.0) Urine Specific [place] 1.013 (1.001-1.035) Urine Protein 1+ (Negative) H Urine Ketones Negative (Negative) Urine Blood 3+ /uL (Negative) H Urine Nitrite Negative (Negative) Urine Bilirubin Negative (Negative) Urine Urobilinogen Normal mg/dL (Negative) Urine Leukocyte Esterase 3+ /uL (Negative) Urine RBC 197 /hpf (0 - 3) Urine WBC Clumps Present /hpf (None Seen) Urine Microscopic WBC 297 /HPF (0-3) H Urine Squamous Epithelial Cells Few /hpf (<5) Urine Bacteria Few /hpf (None Seen) H Urine Mucus Few (None Seen) Urine Glucose Normal mg/dL (Normal) Microbiology Microbiology Date/Time Source Procedure Growth Status 12/11/24 06:49 Nose MRSA Screen - Final Complete 12/10/24 23:56 Blood Blood Culture - Final Methicillin Resistant S.aureus Complete 12/10/24 18:37 Voided Urine Urine Culture - Final Methicillin Resistant S.aureus Complete Assessment/Plan Assessment/Plan Right ureteral stone with hydronephrosis Bacteremia with Gram-positive cocci in clusters Acute complicated UTI HIV Methamphetamine abuse Oral candidiasis Chronic anemia of chronic disease Anal fissure Plan IV Rocephin IV vancomycin IV fluids Urology consult Strain the urine Nystatin swish and swallow Monitor closely Full code Advance directives discussed for 18 minutes 12/13/2024: Anal fissure: Start hydrocortisone rectal cream b.i.d. Oral candidiasis: Continue nystatin swish and swallow Right ureteral stone with hydronephrosis: Urology consult is pending, Flomax, IV fluids Bacteremia with Gram-positive cocci in clusters: Get an echocardiogram and consult Infectious Disease , Rocephin and vancomycin HIV Monitor closely End 10/06/2024: Continue current management Infectious disease consultation appreciated, IV antibiotics Zyvox, discontinued ceftriaxone and vancomycin P.o. Diflucan P.o. nystatin swish and swallow Protonix Monitor closely Plan discussed with: Patient My Orders Orders - EDDIE PERALTA MD Procedure Category Date Status Time Vancomycin Per VASQUEZ 12/13/24 In Process Pharmacy Protoc 13:00 Date of Service: Dec 14, 2024 Billing Provider: EDDIE PERALTA MD Common Visit Codes: [id number] INP/OBS CARE(HIGH) EDDIE PERALTA MD Dec 14, 2024 09:43
--- NOTE | 2024-12-14 12:04 | DVHSR ---
APPROVED REPORT EXAM: Two-dimensional and M-mode echocardiogram with Doppler and color Doppler. Blood Pressure: 140/92 mmHg INDICATION BACTEREMIA RISK FACTORS Height: 5'10, Weight: 171 DIMENSIONS LVDd4.4 (3.8-5.7cm)LA (2D)3.8 (1.9-4.0cm)Aortic Root3.4 (2.0-3.7cm) LVDs3.1 (2.5-4.0cm)LA (MM) (1.9-4.0cm)Aortic Cusp Exc1.9 (1.5-2.0cm) EF (%) 55.0 (55-70%)Rt. Atrium4.1 (1.9-4.0cm)Asc. Aorta3.0 cm IVSd1.0 (0.7-1.1cm)RV (D)5.0 (1.8-2.4cm) PWd1.2 (0.7-1.1cm) Mitral Valve MitralMitral Stenosis E wave0.92m/sMV Mean GR.mmHg A wave1.15m/sMV Peak GR.mmHg E/A ratio0.82D MVAcm2 DECEL [id number] 1/2 Timems Aortic Valve Aortic ValveAortic Stenosis V11.19m/Fadia Mean GR.8mmHg V21.81m/Fadia Peak GR.13mmHg LVOT Diameter1.8 (1.8-2.4cm)Doppler AVA1.67cm2 Pulmonic Valve V21.15m/s Tricuspid Valve TR Velocity2.88m/s [id number] Conclusion lvef 65% prominent RV moderator band small pericardial effusion , no HD compromise, circumferential no vegetation noted
[2024-12-14] MEDS: HYDROmorphone HCL 2 MG/ML VL/or syr IV PRN (16:58)
[2024-12-14] MEDS: TEMAZEPAM 15 MG CAP PO ONE (22:00)
[2024-12-15 01:00] VITALS: BP 132/99; PULSE 74; RESP 17; TEMP 98.4; O2SAT 98
[2024-12-15 05:00] VITALS: BP 135/97; PULSE 88; RESP 17; TEMP 98.5; O2SAT 99
[2024-12-15 08:00] VITALS: PULSE 91
[2024-12-15 09:51] VITALS: BP 119/54; PULSE 114; RESP 20
[2024-12-15 10:05] LABS: Hepatitis B Surface Antigen Negative (Negative)
[2024-12-15] MEDS ORDERED: LINE1TAB6 PO (10:10)
--- NOTE | 2024-12-15 10:13 | DVHDS2 ---
Discharge Summary Date of Admission Dec 10, 2024 at 23:16 Date of Discharge: Dec 15, 2024 Labs/Diagnostic Data: Laboratory Results Test 12/14/24 04:25 12/13/24 04:20 12/12/24 05:50 12/11/24 05:06 Creatinine 0.86 mg/dL (0.700-1.30) Glomerular Filtration Rate Calc 116 mL/min (>90) Cytomegalovirus IgG Antibody >10.00 U/mL (0.00-0.59) Cytomegalovirus IgM Antibody <30.0 AU/mL (0.0-29.9) Hepatitis B Surface Antigen Negative (Negative) White Blood Count 5.4 10^3/uL (4.4-10.8) Red Blood Count 3.01 10^6/uL (4.5-5.90) Hemoglobin 8.1 g/dL (13.5-17.5) Hematocrit 24.0 % (41.0-53.0) Mean Corpuscular Volume 79.7 fL (80.0-100.0) Mean Corpuscular Hemoglobin 26.9 pg (28.0-32.0) Mean Corpuscular Hemoglobin Concent 33.8 g/dL (32.0-36.0) Red Cell Distribution Width 16.5 % (11.8-14.3) Platelet Count 273 10^3/uL (140-450) Mean Platelet Volume 8.0 fL (6.9-10.8) Neutrophils (%) (Auto) % (37.0-80.0) Lymphocytes (%) (Auto) % (10.0-50.0) Monocytes (%) (Auto) % (0.0-12.0) Basophils (%) (Auto) % (0.0-2.0) Neutrophils # (Auto) 10 ^3/uL (1.6-8.6) Lymphocytes # (Auto) 10 ^3/uL (0.4-5.4) Monocytes # (Auto) 10 ^3/uL (0-1.3) Differential Total Cells Counted 100.0 (100) Neutrophils % (Manual) 76 (37.0-80.0) Band Neutrophils % (Manual) 3 Lymphocytes % (Manual) 21 (10.0-50.0) Monocytes % (Manual) 0 (0-12) Eosinophils % (Manual) 0 (0-7) Basophils % (Manual) 0 (0.0-2.0) Metamyelocytes % (manual) 0 Myelocytes % (Manual) 0 Promyelocytes % (Manual) 0 Blast Cells % (Manual) 0 Reactive Lymphocytes 0 Platelet Estimate Adequate Random Vancomycin Level 4.1 ug/mL (5-10) Eosinophils (%) (Auto) 0.4 % (0.0-7.0) Eosinophils # (Auto) 0 10 ^3/uL (0-0.8) Basophils # (Auto) 0 10 ^3/uL (0-0.2) Nucleated Red Blood Cells 0.0 % Sodium Level 136 mmol/L (136-145) Potassium Level 3.7 mmol/L (3.5-5.1) Chloride Level 100 mmol/L (98-107) Carbon Dioxide Level 27 mmol/L (20-31) Anion Gap 9 (5-15) Blood Urea Nitrogen 9 mg/dL (9-23) BUN/Creatinine Ratio 11.4 (10.0-20.0) Serum Glucose 88 mg/dL (74-106) Calcium Level 7.4 mg/dL (8.7-10.4) Magnesium Level 1.3 mg/dL (1.6-2.6) Total Bilirubin 0.3 mg/dL (0.2-1.0) Aspartate Amino Transferase (AST) 24 U/L (13-40) Alanine Aminotransferase (ALT) 15 U/L (7-40) Alkaline Phosphatase 112 U/L (46-116) Total Protein 6.1 g/dL (5.7-8.2) Albumin 2.7 g/dL (3.2-4.8) Urine Opiates Screen Neg (NEGATIVE) Urine Fentanyl Screen Pos (NEGATIVE) Urine Barbiturates Screen Neg (NEGATIVE) Urine Phencyclidine Screen Neg (NEGATIVE) Urine Amphetamines Screen Pos (NEGATIVE) Urine Benzodiazepines Screen Neg (NEGATIVE) Urine Cocaine Screen Neg (NEGATIVE) Urine Cannabinoids Screen Neg (NEGATIVE) Test 12/10/24 23:56 12/10/24 18:54 12/10/24 18:37 Prothrombin Time 11.9 sec (9.3-11.8) Prothrombin Time INR 1.14 (0.9-1.15) Activated Partial Thromboplast Time 29.9 SEC (24.5-34.5) Lactic Acid Level 1.6 mmol/L (0.4-2.0) Direct Bilirubin 0.2 mg/dL (<0.3) Iron Level 14 ug/dL (65-175) Total Iron Binding Capacity 186 ug/dL (250-425) Percent Iron Saturation 7.5 % (20-55) Ferritin 590.3 ng/mL (22-322) Urine Color Light-brown (Yellow) Urine Clarity Turbid (Clear) Urine pH 6.0 (5.0-9.0) Urine Specific [place] 1.013 (1.001-1.035) Urine Protein 1+ (Negative) Urine Ketones Negative (Negative) Urine Blood 3+ /uL (Negative) Urine Nitrite Negative (Negative) Urine Bilirubin Negative (Negative) Urine Urobilinogen Normal mg/dL (Negative) Urine Leukocyte Esterase 3+ /uL (Negative) Urine RBC 197 /hpf (0 - 3) Urine WBC Clumps Present /hpf (None Seen) Urine Microscopic WBC 297 /HPF (0-3) Urine Squamous Epithelial Cells Few /hpf (<5) Urine Bacteria Few /hpf (None Seen) Urine Mucus Few (None Seen) Urine Glucose Normal mg/dL (Normal) Other Laboratory Tests 12/14/24 04:25 12/13/24 04:20 12/12/24 05:50 Brief Hx & Hospital Course: Final diagnoses: Right ureteral stone with hydronephrosis Bacteremia with MRSA Acute complicated UTI with MRSA HIV Methamphetamine abuse Oral candidiasis Chronic anemia of chronic disease Anal fissure 33-year-old male with a history of HIV came with right flank pain and sore throat and difficulty swallowing He was treated with IV antibiotics but he was also bacteremic and the blood and urine cultures came back MRSA He was treated initially with vancomycin and then the Infectious Disease consultation was obtained recommended to give him Zyvox He has recommended stay on Zyvox for 4 weeks and therefore we will change it to 600 mg p.o. twice a day for his 4 weeks For the oral thrush she will get nystatin swish and swallow He also was diagnosed with an anal fissure which requires hydro cortisone topical He is cleared for discharge today Condition at Discharge: Stable Final Diagnosis/Problems List Right ureteral stone with hydronephrosis Bacteremia with MRSA Acute complicated UTI with MRSA HIV Methamphetamine abuse Oral candidiasis Chronic anemia of chronic disease Anal fissure Discharge Disposition: Home SNF Discharge Will this Physician continue t: No Discharge Instruct/Medications Scheduled Linezolid (Zyvox), 600 MG PO BID Discharge Statement: "Patient was advised to return to the ER or call 911 if any headaches, dizziness, shortness of breath, chest pain, abdominal pain, bleeding, fevers, or worsening of medical condition. Patient was counseled about treatment plan, medications, possible side effects, patientverbalized understanding. All questions were answered to the best of my ability. This discharge took greater then 30 minutes in planning, reviewing documentation, counseling the patient, and discussing with other team members." ASSESSMENT ASSESSMENT Assessment Date of Service: Dec 15, 2024 Billing Provider: EDDIE PERALTA MD Common Visit Codes: [id number] DISCH DAY >30min EDDIE PERALTA MD Dec 15, 2024 10:13
[2024-12-15] MEDS ORDERED: HYDR2.5C39 TOP (10:16)
[2024-12-15] MEDS ORDERED: NYS5LQ MT (10:16)
[2024-12-15 10:23] LABS: Hepatitis C Antibody Negative (Negative)
[2024-12-15] MEDS: LORazepam 0.5 MG TAB PO PRN (10:37)
[2024-12-15 15:27] VITALS: TEMP 36.9
--- NOTE | 2024-12-15 22:17 | DVHPN2 ---
Consult Progress Note Objective vital signs Vital Sign Date Time Temp Pulse Resp B/P (MAP) Pulse Ox O2 Delivery O2 Flow Rate FiO2 12/15/24 15:27 36.9 12/15/24 09:51 114 20 119/54 12/15/24 08:00 Room Air* 0 21 12/15/24 05:00 99 Total Intake and Output 12/14/24 12/14/24 12/15/24 15:00 23:00 07:00 Intake Total 2150 ml 237 ml Output Total 800 ml 3350 ml Balance 1350 ml -3113 ml laboratory and microbiology Laboratory Tests 12/14/24 04:25 12/13/24 04:20 12/12/24 05:50 Test 12/12/24 05:50 Range/Units Serum Glucose 88 74-106 mg/dL Dietary Evaluation Review Comments: Monitor PO intake, lab values, weight trend, and I/O Expected Outcomes/Goals: Intake to meet >75% estimated needs FU 5-7 days NAI ROMAN MD Dec 15, 2024 22:17
== END 2024-12-15 16:05 | disposition home or self-care (01) | DRG 892 ==
LOC: ER 17:31 → OVERFLOW 23:16 → TELE-EAST 12-11 19:47
PROVIDERS: ADMIT Internal Medicine Geriatric Medicine; ATTEND Internal Medicine Geriatric Medicine
DX: A41.02 Sepsis due to Methicillin resistant Staphylococcus aureus (principal); B20 Human immunodeficiency virus [HIV] disease; B37.0 Candidal stomatitis; D63.8 Anemia in other chronic diseases classified elsewhere; N13.6 Pyonephrosis; E44.1 Mild protein-calorie malnutrition; F15.10 Other stimulant abuse, uncomplicated; Z59.00 Homelessness unspecified; D50.9 Iron deficiency anemia, unspecified; F17.210 Nicotine dependence, cigarettes, uncomplicated; K60.2 Anal fissure, unspecified; R31.0 Gross hematuria; Z79.899 Other long term (current) drug therapy; Z68.22 Body mass index [BMI] 22.0-22.9, adult
CPT/HCPCS: 36415; 71045; 74176; 76705; 80048; 80053; 80074; 80076; 80202; 80307; 81001; 82565; 82728; 83540; 83550; 83605; 83735; 85007; 85014; 85018; 85025; 85027; 85610; 85730; 86641; 86644; 86645; 87040; 87077; 87081; 87086; 87186; 87536; 93306; 96365; 96372; G0378; J1756; J1885; J2470